=== PATIENT | female | born 1965 | race Caucasian/White ===

== ENCOUNTER 2020-08-13 14:35 | Emergency (ER) | payer MEDICAID ==
[~2020-08-13] VITALS: Ht 154.9 cm; Wt 90.7 kg
[~2020-08-13 14:35] MED LIST: AUGMENTIN 875875 MG PO; SEPTDS PO
[2020-08-13] MEDS ORDERED: VENT7GM INH (16:26)
== END 2020-08-13 16:32 | disposition home or self-care (01) ==
LOC: ED 14:35
DX: Z76.0 Encounter for issue of repeat prescription (principal); Z79.899 Other long term (current) drug therapy; Z88.8 Allergy status to other drugs, medicaments and biological substances; R07.89 Other chest pain

== ENCOUNTER 2021-04-05 21:39 | Emergency (ER) | payer MEDICAID ==
[~2021-04-05] VITALS: Ht 154.9 cm; Wt 90.7 kg
[~2021-04-05 21:39] MED LIST changes: +VENT7GM INH
[2021-04-05] MEDS ORDERED: EZALLOR SPRINKL10 MG PO (22:09)
[2021-04-05] MEDS ORDERED: MELOXICAM7.5 MG PO (22:09)
[2021-04-05] MEDS ORDERED: LOSARTAN POTAS100 M1 PO (22:09)
[2021-04-05] MEDS ORDERED: FUROSEMIDE20 M1 PO (22:10)
[2021-04-05] MEDS ORDERED: FLOVENT HFA10.6 GM IH (22:10)
[2021-04-05] MEDS ORDERED: VITAMIN D250 MC1 PO (22:10)
[2021-04-05] MEDS ORDERED: MECLIZINE HYD12.5 MG PO (22:11)
[2021-04-05] MEDS ORDERED: VAZALORE81 MG PO (22:11)
== END 2021-04-06 02:00 | disposition left against medical advice (07) ==
LOC: ED 21:39
DX: L98.9 Disorder of the skin and subcutaneous tissue, unspecified (principal); Z53.21 Procedure and treatment not carried out due to patient leaving prior to being seen by health care provider